=== PATIENT | female | born 1930 | race Caucasian/White ===

== ENCOUNTER 2016-08-03 15:57 | Inpatient (IN) | payer MEDICARE, OTHER ==
--- NOTE | 2016-08-03 16:03 | ED.PDOC ---
History of Present Illness - General Chief Complaint: Respiratory Problem Stated Complaint: cough Time Seen by Provider: 08/03/16 16:00 Source: patient, RN notes reviewed, Vital Signs reviewed, family Exam Limitations: no limitations Additional Information: Pt brought in to ER by daughter who is visiting from out of town. Pt with cough for the past 3 to 4 days. Pt is seen by Home Health 3 times a week and has a healing left lower leg skin ulcer that she is getting wound care for. Pt appears debilitated, weak, and in some discomfort. She was found to have a low grade temperature and some mild hypoxia along with mild tachycardia. Daughter is aware that patient is frail and will likely need to be admitted in order to improve her overall condition and she will likely benefit from rehab/ [facility] placement sooner rather than later. Pt has an advanced directive stating DNR/DNI. - History of Present Illness Timing/Duration: other - 3 to 4 days Severity: moderate Improving Factors: nothing Worsening Factors: movement Associated Symptoms: cough, fever/chills Allergies/Adverse Reactions: Allergies Codeine Allergy (Verified 11/24/15 10:01) Tylenol with codeine Home Medications: Ambulatory Orders Furosemide [Lasix] 20 mg PO .AM AND NOON 09/25/15 Potassium Chloride [Micro-K] 10 meq PO BID 08/03/16 Warfarin Sodium 3 mg PO BEDTIME 08/03/16 Review of Systems - Review of Systems Constitutional: States: see HPI, weakness EENTM: States: no symptoms reported Respiratory: States: cough Cardiology: States: no symptoms reported Gastrointestinal/Abdominal: States: no symptoms reported Genitourinary: States: no symptoms reported Musculoskeletal: States: back pain - chronic Skin: States: see HPI - - chronic left lower leg ulcer, obtaining wound care from home health nurse. Neurological: States: weakness Endocrine: States: no symptoms reported Hematologic/Lymphatic: States: no symptoms reported Past Medical History (General) - Patient Medical History Hx Seizures: No Hx Stroke: No Hx Dementia: No Hx Asthma: No Hx of COPD: No Hx Cardiac Disorders: No Hx Congestive Heart Failure: No Hx Pacemaker: No Hx Hypertension: No Hx Thyroid Disease: No Hx Diabetes: No Hx Gastroesophageal Reflux: No Hx Renal Disease: No Hx Cancer: No Hx of HIV: No Hx Hepatitis C: No Hx MRSA: No Hx Other PMH: Yes - history of DVT and PE in the past. MRSA Source:: Wound - Vaccination History Hx Tetanus, Diphtheria Vaccination: Yes Hx Influenza Vaccination: Yes Hx Pneumococcal Vaccination: Yes - Social History Hx Tobacco Use: No Hx Chewing Tobacco Use: No Hx Alcohol Use: No Hx Substance Use: No Hx Substance Use Treatment: No Hx Depression: No Hx Physical Abuse: No Hx Emotional Abuse: No Hx Suspected Abuse: No - Female History Patient : No Family Medical History - Family History Mother Family History: No Known Living Status: Hx Family Cancer: Yes - Breast and then brain Physical Exam - Physical Exam General Appearance: Ill Appearing, Unkempt Eye Exam: bilateral normal Ears, Nose, Throat: other - dry mucus membranes Neck: non-tender, full range of motion, supple Respiratory: respiratory distress - mild, rhonchi - diffuse with associated cough, wheezing - mild, diffuse Cardiovascular/Chest: tachycardia - mild Extremity: swelling - 1+ Neurologic: senior sql database developer II-XII nml as tested, no motor/sensory deficits, abnormal gait Skin Exam: other - Left lower extremity with bandage in place - clean/dry/intact Progress - Progress Progress: 08/03/16 19:03 Pt ill-appearing. Breath sounds are coarse and mildly hypoxic suggestive of pneumonia given low grade temp. Will perform a work-up with CBC, CMP, U/A, BNP, Blood Culture, CXR, and EKG. Will treat empirically for pneumonia with Rocephin and Zithromax and treat with nebulizer therapy as well. 08/03/16 19:08 Pt reports unchanged condition despite breathing treatment, IV antibiotics. Her oxygenation improved but her lung sounds were unchanged. Pt will likely benefit from admission. She is unsafe to go home given her debilitated state. She has findings suggestive of a UTI and a possible Pneumonia. Hospitalist called at [phone] - Caren (Nurse Practitioner) - who agreed to admission. - Results/Orders Results/Orders: 08/03/16 16:24 URINE CULTURE W/COLONY COUNT Stat 08/03/16 16:30 cefTRIAXone SODIUM [Rocephin] 1 gm Sodium Chl 0.9% 50Ml Min-Bag+ [NS 50ml MINI -BAG+] 50 ml IVPB Q24H EKG STAT 08/03/16 16:45 Sodium Chloride 0.9% 500Ml [NS 500ml] 500 ml IVS .QD 08/03/16 16:58 BLOOD CULTURE Stat 08/03/16 18:12 ED Intent to Admit Routine Laboratory Results - last 24 hr 08/03/16 08/03/16 08/03/16 16:15 16:16 16:24 WBC 9.1 RBC 4.77 Hgb 14.0 Hct 42.8 MCV 89.6 MCH 29.4 MCHC 32.8 L RDW 13.8 Plt Count 189 MPV 8.4 Absolute Neuts (auto) 5.90 Absolute Lymphs (auto) 2.20 Absolute Monos (auto) 0.90 H Absolute Eos (auto) 0.00 Absolute Basos (auto) 0.10 Neutrophils % 65.1 Lymphocytes % 24.1 Monocytes % 9.4 H Eosinophils % 0.4 L Basophils % 1.0 PT 15.9 H INR 1.410 Sodium 142 Potassium 3.6 Chloride 106 Carbon Dioxide 28 Anion Gap 11.6 L BUN 26 H Creatinine 0.88 BUN/Creatinine Ratio 29.5 H Random Glucose 109 H Serum Osmolality 288.5 Calcium 8.8 Total Bilirubin 0.4 AST 40 ALT 32 Alkaline Phosphatase 55 B-Natriuretic Peptide 132.0 H Serum Total Protein 7.1 Albumin 3.4 Globulin 3.7 H Albumin/Globulin Ratio 0.9 L Urine Color Yellow Urine Appearance Cloudy Urine pH 6.0 Ur Specific Ruth 1.020 Urine Protein Negative Urine Glucose (UA) Negative Urine Ketones Negative Urine Blood Large H Urine Nitrite Positive H Urine Bilirubin Negative Urine Urobilinogen 0.2 Ur Leukocyte Esterase Small H Urine RBC 5-10 H Urine WBC 10-20 H Ur Epithelial Cells 3-5 Urine Bacteria 3+ H - EKG/XRAY/CT EKG: Sinus, Tachy, no ST T wave changes XRAY: chest - single view - no obvious acute findings Departure - Departure Clinical Impression: Pneumonia, Urinary tract infection, Debilitated Disposition: Admit Patient Condition: Poor Referrals: Larry Bravo MD [Primary Care Provider] - 1-2 Weeks Home Medications: Ambulatory Orders Furosemide [Lasix] 20 mg PO .AM AND NOON 09/25/15 Potassium Chloride [Micro-K] 10 meq PO BID 08/03/16 Warfarin Sodium 3 mg PO BEDTIME 08/03/16 Decision To Admit - Decistion To Admit Decision to Admit Reason: Medical Nature - Pneumonia, UTI, Weakness Decision to Admit Date: 08/03/16 Decision to Admit Time: 18:12
[2016-08-03] MEDS ORDERED: AZITHROMYCIN IV 500 MG in SODIUM CHLORIDE 0.9% 250ML 250 ML IVPB ONE (16:14)
[2016-08-03] MEDS ORDERED: ALBUTEROL SULFATE 2.5 MG/3 ML VIAL NEB ONE (16:19)
[2016-08-03] MEDS ORDERED: cefTRIAXone SODIUM 1 GM in SODIUM CHL 0.9% 50ML MIN-BAG+ 50 ML IVPB SCH (16:30)
[2016-08-03] MEDS ORDERED: SODIUM CHLORIDE 0.9% 500ML 500 ML IVS PRN (16:45)
[2016-08-03] MEDS ORDERED: cefTRIAXone SODIUM 1 GM VIAL ONE (16:48)
[2016-08-03] MEDS ORDERED: SODIUM CHL 0.9% 50ML MIN-BAG+ 50 ML IVPB ONE (16:48)
--- NOTE | 2016-08-03 16:54 | RAD ---
PROCEDURE: XR CHEST 1 VIEW HISTORY: cough for 3 days elevated temp COMPARISON: 10/02/2015 TECHNIQUE: Single projection of the chest was done. FINDINGS: Chronic prominence of the interstitium is seen in the bilateral lung lauren . There are no discrete airspace infiltrates, pneumothoraces or pleural effusions. The pulmonary vascularity is normal. The cardiomediastinal contour is stable . IMPRESSION: There is no acute pleural-parenchymal process seen in the imaged lung lauren. Location of Interpretation: [facility] Electronically signed by: Bandar Hays MD 08/03/2016 4:53 PM NIGHT SHIFT MANAGER
[2016-08-03] MEDS ORDERED: AZITHROMYCIN IV 500 MG VIAL IVPB ONE (17:34)
[2016-08-03] MEDS ORDERED: SODIUM CHLORIDE 0.9% 250ML 250 ML ONE (17:35)
[2016-08-03] MEDS ORDERED: WATER FOR INJ 10 ML VIAL INJ ONE (18:02)
--- NOTE | 2016-08-03 19:30 | HP ---
SUPERVISING PHYSICIAN: Saeid Zaragoza M.D. CHIEF COMPLAINT: Coughing and upper respiratory symptoms times 1 week. HISTORY OF PRESENT ILLNESS: This is an 86 year-old female patient who was brought to the Emergency Room by her daughter who is visiting her from out of town. The patient has had a cough for over a week but has progressively worsened over the last 3 or 4 days to the point where she had become short of breath and had some wheezing. She denied having any fever but she had not taken it. She also has some bilateral lower leg wounds that have been treated by her Home Health. In the Emergency Room, she had some mild hypoxia with some tachycardia as well as tachypnea. In the Emergency Room, her O2 sat was 91 but her respiratory rate was as high as 24. Heart rate was up to 111. She was visibly short of breath. She was given Rocephin as well as Azithromycin. She was also found to have a urinary tract infection. Her BNP was slightly elevated at 132 but she does not have a history of any congestive heart failure. I was called for hospital admission. PAST MEDICAL HISTORY: 1. Seasonal allergies. 2. DVT of the right leg in 2015 as well as 2016. 3. Pulmonary embolism in 2014. 4. 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 5. Chronic obstructive pulmonary disease. 6. Chronic lower extremity edema. 7. History of decubitus ulcers and wounds with poor healing. PAST SURGICAL HISTORY: 1. Cholecystectomy. 2. Hemorrhoidectomy. 3. Hysterectomy. 4. Sinus surgery with sinus and pallet surgery. CURRENT MEDICATIONS: Per the EMR and awaiting verification. ALLERGIES: ASPIRIN AND CODEINE. FAMILY HISTORY: CEA and breast cancer. SOCIAL HISTORY: She lives alone at [facility]. She denies any tobacco , ETOH or illicit drug use. REVIEW OF SYSTEMS: Complains of fatigue and chills, but she is not aware of any fever. HEENT: Complains of sinus symptoms, allergy-type symptoms, but denies sore throat or vision changes. RESPIRATORY: As per the history of present illness. CARDIAC: Denies chest pain or palpitations. ABDOMEN: Denies abdominal pain, nausea or vomiting, constipation or diarrhea. GENITOURINARY: Denies hematuria, dysuria or polyuria. NEUROLOGIC: Denies headache, dizziness or seizures. EXTREMITIES: Complains of chronic lower leg swelling. SKIN: Complains of a rash under her breasts as well as redness in the vaginal area as well as some wounds on her lower legs. PHYSICAL EXAMINATION: VITAL SIGNS: Temperature 100, pulse is as high as 111 but is now 92, blood pressure 152/85, respiratory rate 24, O2 sat was initially 91% and it is now 96 % on 2 liters nasal cannula. GENERAL: This is an 86 year-old female who is slightly disheveled lying in her hospital bed. HEENT: Normocephalic and atraumatic. Oropharynx is clear. Oral mucous membranes are moist. NECK: Supple without mass. There is no jugular venous distention. CHEST: Bilateral expiratory wheezing noted throughout with some coarse rhonchi , especially noticeable in the apices. CARDIOVASCULAR: Regular rate and rhythm. ABDOMEN: Soft, nondistended, non-tender. Bowel sounds are positive. EXTREMITIES: No cyanosis or clubbing, but there is +2 edema to her lower extremities. NEUROLOGIC: She is awake, alert and oriented, but she is [id number]. SKIN: She has a yeast-like rash under both breasts, axilla and inguinal area. Under her right breast she has some greenish type drainage from a wound in the crease under that breast. She also has some yeasty areas to the folds in the abdomen. She also has a stage II decubitus on her left buttocks and a stage I area on her left buttocks. She also has wounds to bilateral lower legs on the lateral aspect of those legs. LABORATORY: Sodium 142, potassium 3.6, chloride 106, carbon dioxide 28, anion gap 11.6, BUN 26, creatinine 0.88, glucose 109. BNP 132, globulin 3.7. Urine has a large amount of urine blood, positive for urine nitrites, small amount of leukocyte esterase, 5 to 10 urine RBCs, 10 to 20 urine WBCs and 3+ urine bacteria. PT 15.9, INR 1.4. She supposedly takes Coumadin and she states she did have her dose today. Chest x-ray shows no acute pleural parenchymal processes seen in the imaged lung lauren. All other labs and films have been reviewed via the EMR. ASSESSMENT: 1. Urinary tract infection with a history of chronic urinary tract infections. 2. Exacerbation of chronic obstructive pulmonary disease with a history of tuberculosis in 1954 with noted tachypnea and tachycardia as well as dyspnea in the Emergency Room. 3. Candidiasis of the inguinal area under her breasts, the axilla and skin folds. 4. Wound under her left breast with wounds to the lateral aspect of her bilateral lower legs. 5. Decubitus ulcers on the buttocks stage II on the left and stage 1 on the right. 6. History of deep venous thromboses and pulmonary embolus on Coumadin therapy at this time with a subtherapeutic INR. 7. Self care deficit. PLAN: We will admit the patient to the hospital. She has received Azithromycin and Rocephin in the Emergency Room and I will continue both of those. She has had blood cultures done as well as urine cultures and those are pending. I have ordered a sputum culture. She will have breathing treatments both scheduled and as needed. I have given her 1 dose of Solu-Medrol and I have not continued steroid therapy and that may need to be continued in the morning. I have also added Mucinex as well as Tessalon Perles. Wound care to her buttocks and her lower legs. I have cultured her wound under her breast. I have also ordered some Nystatin powder for the yeast. May need to add some Diflucan tomorrow. I have added a Machine Programmer consultation for discharge planning. I will also order physical therapy. I have added Protonix for ulcer prophylaxis. Her INR is subtherapeutic and she has had a history of DVTs. I do not see any indication for any coagulopathies at this time, but I am going to hold her Coumadin and put her on DVT prophylaxis at least tonight. She may need to be put on the higher dose of Lovenox tomorrow. I have ordered pulmonary hygiene as well as incentive spirometry. We will continue to monitor the patient closely and follow as needed. Dr. Zaragoza is the collaborating physician available for consultation. #[id number] [facility]
[2016-08-03] MEDS ORDERED: LEVALBUTEROL NEBS 1.25 MG/3 ML VIAL INH PRN (21:27)
[2016-08-03] MEDS ORDERED: IV SET AND CAP CHANGE INJ INJ SCH (21:30)
[2016-08-03] MEDS ORDERED: WARFARIN SODIUM 2 MG TAB PO ONE (21:47)
[2016-08-03] MEDS ORDERED: GLUCAGON INJ 1 MG VIAL SUBCU PRN (21:48)
[2016-08-03] MEDS ORDERED: DEXTROSE 50% 25 GM/50 ML SYG IV PRN (21:48)
[2016-08-03] MEDS ORDERED: methylPREDNISolone SODIUM SUC 125 MG/2 ML VIAL IV ONE (21:48)
[2016-08-03] MEDS ORDERED: SODIUM CHLORIDE 0.9% 10 ML VIAL ONE (21:53)
[2016-08-03] MEDS ORDERED: WARFARIN SODIUM 2 MG TAB ONE (21:53)
[2016-08-03] MEDS: IPRATROPIUM/ALBUTEROL 3 ML VIAL INH SCH (21:57)
[2016-08-03] MEDS ORDERED: PANTOPRAZOLE SODIUM IV 40 MG VIAL IV SCH (22:00)
[2016-08-03] MEDS ORDERED: ENOXAPARIN SODIUM 40 MG/0.4 ML SYG SUBCU SCH (22:00)
[2016-08-03] MEDS: BENZONATATE PERLES 100 MG CAP PO PRN (22:02)
[2016-08-03] MEDS: guaiFENesin ER TAB 600 MG TAB PO SCH (22:04)
[2016-08-03] MEDS: NYSTATIN POWDER 15GM BTTL TOP SCH (22:05)
[2016-08-03] MEDS: HYDROcodone 5MG/APAP 325MG 1 EA TAB PO PRN (22:05)
[2016-08-04] MEDS ORDERED: SODIUM CHL 0.9% 50ML MIN-BAG+ 50 ML IVPB ONE ×2 (03:25→15:59)
[2016-08-04] MEDS ORDERED: cefTRIAXone SODIUM 1 GM VIAL ONE ×2 (03:25→15:59)
[2016-08-04] MEDS: cefTRIAXone SODIUM 1 GM in SODIUM CHL 0.9% 50ML MIN-BAG+ 50 ML IVPB SCH ×2 (06:23→18:16)
--- NOTE | 2016-08-04 07:24 | RAD ---
EXAM: Single view chest. INDICATION: Chest pain. COMPARISON: Chest x-ray: 08/03/2016. FINDINGS: There are bibasilar interstitial opacities. Small pleural effusions may be present. The heart size is stable. There is is no pneumothorax. The bones are demineralized. IMPRESSION: Bibasilar interstitial opacities Electronically signed by: Last Jaramillo MD 08/04/2016 7:23 AM CDT
[2016-08-04] MEDS: INSULIN LISPRO 100 UNITS/ML PEN SUBCU SCH ×4 (08:02→21:18)
[2016-08-04] MEDS: guaiFENesin ER TAB 600 MG TAB PO SCH ×2 (08:31→21:18)
[2016-08-04] MEDS: NYSTATIN POWDER 15GM BTTL TOP SCH ×3 (08:32→21:18)
[2016-08-04] MEDS: IPRATROPIUM/ALBUTEROL 3 ML VIAL INH SCH (08:39)
[2016-08-04] MEDS ORDERED: LEVALBUTEROL NEBS 1.25 MG/3 ML VIAL NEB PRN (08:47)
[2016-08-04] MEDS ORDERED: SODIUM CHLORIDE 0.9% 10 ML VIAL IV PRN (08:50)
[2016-08-04] MEDS: WARFARIN SODIUM 5 MG TAB PO SCH (12:14)
[2016-08-04] MEDS ORDERED: FLUCONAZOLE 150 MG TAB PO ONE (12:20)
--- NOTE | 2016-08-04 12:23 | PCM.CORE ---
Physician DVT/VTE - Prophylaxis Currently: Patient already on anticoagulation therapy - Warfarin - Nurse DVT Assessment & Total Each Risk Factor Represents 3 Points: Age over 75 years, Hx of DVT/PE, Family Hx thrombosis Each Risk Factor is 1 Point: Serious Lung disease (pnemonia <1month, COPD, emphysema,etc) DVT Assessment Score: 10 - 5 or more Very High Risk Treatments: Early Ambulation *, Sequential Compression Device Pharmacological: Warfarin daily
[2016-08-04] MEDS: IPRATROPIUM/ALBUTEROL 3 ML VIAL NEB SCH ×3 (12:57→19:24)
[2016-08-04] MEDS ORDERED: FLUCONAZOLE 150 MG TAB ONE (13:27)
[2016-08-04] MEDS: HYDROcodone 5MG/APAP 325MG 1 EA TAB PO PRN ×2 (13:32→21:18)
--- NOTE | 2016-08-04 13:34 | PN ---
DATE: 08/04/16 SUPERVISING PHYSICIAN: Saeid Zaragoza M.D. SUBJECTIVE: The patient is resting in bed visiting with her daughter. She appears to be in no acute distress. She continues to have a nonproductive cough. She denies any chest pains, nausea or vomiting or diarrhea. OBJECTIVE: VITAL SIGNS: T max 100.0, pulse 89, blood pressure 99/66, respirations 20, O2 sat showing 96% on nasal cannula at rest. I's and O's show a positive balance of 180 with 380 in, 200 out. Weight 68.0 kg. GENERAL: The patient appears to be in no acute distress. She is able to converse without any difficulty. CHEST: Notable for continued coarse rhonchi more prominent in the posterior bases bilaterally. No wheezing is appreciated. HEART: Regular rate and rhythm. ABDOMEN: Soft, non-tender. Positive bowel sounds. EXTREMITIES: bilateral lower extremities are covered with Giuseppe bandages. Pulses distally are 1+ bilaterally. Difficult to assess degree of edema secondary to compression wrapping. NEUROLOGIC: She is alert and oriented times three. INTEGUMENT: There is a yeast-appearing rash underneath the breasts bilaterally as well as inguinal area and underneath the abdominal folds. LABORATORY: White count 6.0, hemoglobin 12.5, hematocrit 38.8, platelet count 169,000. Differential does show a left shift today. INR is still low at 1.62 with PT of 18.2. Chemistries show normal electrolytes with potassium 3.6, BUN 26, creatinine 1.04, glucose 213, calcium 8.1. Liver functions show to be within normal limits. MICROBIOLOGY: Urine culture preliminary shows gram-negative rods. Blood cultures remain negative. Wound culture from the breast area remains with no growth at 24 hours. Sputum culture preliminary shows normal onofre at 24 hours and MRSA surveillance culture is pending. RADIOLOGY: Per radiology interpretation shows bibasilar interstitial opacities. ASSESSMENT: 1. Urinary tract infection with a significant history for chronic urinary tract infections with preliminary culture showing gram-negative rods. 2. Acute exacerbation of chronic obstructive pulmonary disease with history of tuberculosis in 1954 noted to be significant with tachycardia on admission with some notable dyspnea with radiographic studies indicating possible bibasilar pneumonia with the patient also being afebrile. 3. Intertrigo to multiple areas including breast, axilla and abdominal folds. 4. Wound to the left breast as well as lateral aspect of bilateral lower legs with preliminary cultures pending. 5. Multiple decubitus ulcers, one stage II on the left and a stage I on the right. 6. History of deep venous thrombosis and pulmonary embolus on Coumadin therapy with a subtherapeutic INR on admission. 7. Significant self care deficit. PLAN: Will continue with current plan of care and await final culture results. She does remain on antibiotics parenterally that include Azithromycin and Rocephin. She has also been started on Mucinex with sputum culture preliminary showing normal onofre. Will continue with aggressive pulmonary hygiene including Xopenex treatments. In regards to the intertrigo treatment, will continue with Nystatin 3 times a day and given 1 dose of Diflucan 150 mg today. I will increase her Coumadin today to 5 mg and recheck in the morning. She will continue on Coumadin with no additional Lovenox. Plan to do DVT studies to the lower extremities given the patient's history and subtherapeutic INR on admission. Epic Radiant Analyst consultation will be initiated to help with discharge planning. After talking with the family, the patient's daughter, have voiced they will move the patient to [place], [place] in September when they are able to make arrangements, but until that point they would request that we help with assisting placing the patient into a care facility given the patient' s significant self care deficit. Anticipate discharge in 2 to 3 days and until then will continue to monitor the patient closely and treat appropriately. Dr. Zaragoza is the collaborating physician and available for consultation. #[id number] [facility]
[2016-08-04] MEDS ORDERED: SODIUM CHLORIDE 0.9% 250ML 250 ML ONE (15:59)
[2016-08-04] MEDS ORDERED: AZITHROMYCIN IV 500 MG VIAL IVPB ONE (16:00)
[2016-08-04] MEDS: AZITHROMYCIN IV 500 MG in SODIUM CHLORIDE 0.9% 250ML 250 ML IVPB SCH (16:06)
[2016-08-04] MEDS: SODIUM CHLORIDE 0.9% (FLUSH) 10 ML SYG IV PRN ×2 (18:17→21:18)
[2016-08-04] MEDS ORDERED: PANTOPRAZOLE SODIUM IV 40 MG VIAL IV SCH (21:00)
[2016-08-04] MEDS ORDERED: ENOXAPARIN SODIUM 40 MG/0.4 ML SYG SUBCU SCH (21:00)
[2016-08-04] MEDS: BENZONATATE PERLES 100 MG CAP PO PRN (21:18)
[2016-08-05] MEDS ORDERED: SODIUM CHL 0.9% 50ML MIN-BAG+ 50 ML IVPB ONE ×2 (05:35→18:46)
[2016-08-05] MEDS ORDERED: cefTRIAXone SODIUM 1 GM VIAL ONE ×2 (05:36→18:46)
[2016-08-05] MEDS: SODIUM CHLORIDE 0.9% (FLUSH) 10 ML SYG IV PRN ×2 (05:45→20:56)
[2016-08-05] MEDS: cefTRIAXone SODIUM 1 GM in SODIUM CHL 0.9% 50ML MIN-BAG+ 50 ML IVPB SCH ×2 (05:46→18:48)
[2016-08-05] MEDS: INSULIN LISPRO 100 UNITS/ML PEN SUBCU SCH ×4 (07:26→21:30)
[2016-08-05] MEDS: guaiFENesin ER TAB 600 MG TAB PO SCH ×2 (08:36→20:56)
[2016-08-05] MEDS: NYSTATIN POWDER 15GM BTTL TOP SCH ×3 (08:36→21:30)
[2016-08-05] MEDS: IPRATROPIUM/ALBUTEROL 3 ML VIAL NEB SCH ×4 (09:10→21:11)
--- NOTE | 2016-08-05 11:49 | US ---
Procedure: US LOWER EXTREMITY VEINS LIMITED/UNILATERAL/FOLLOW UP, US LOWER EXTREMITY VEINS LIMITED/UNILATERAL/FOLLOW UP Exam Date: 08/05/2016 10:15 AM CDT Ordering Provider: Bennett Osorio NP Clinical Indication: Bilateral lower extremity swelling and pain Comparison: None Technique: Multiple real-time grayscale sonographic images of the bilateral lower extremity veins were obtained with color flow Doppler. Findings: Nonocclusive thrombus seen within the bilateral popliteal veins as there is no compressibility and echogenic thrombus is seen within the lumen. Otherwise, normal compressibility and augmentation of flow is seen within the common femoral, saphenous, and femoral veins. No other evidence of echogenic thrombus. No soft tissue abnormality identified. Impression: 1. Nonocclusive thrombus seen within the bilateral popliteal veins. Electronically signed by: Juan Carlos Mauricio MD 08/05/2016 11:48 AM CDT
[2016-08-05] MEDS: PANTOPRAZOLE SODIUM TAB 40 MG PO SCH (11:52)
[2016-08-05] MEDS: WARFARIN SODIUM 5 MG TAB PO SCH (11:52)
[2016-08-05] MEDS ORDERED: SODIUM CHLORIDE 0.9% 250ML 250 ML ONE (12:53)
[2016-08-05] MEDS ORDERED: AZITHROMYCIN IV 500 MG VIAL IVPB ONE (12:53)
--- NOTE | 2016-08-05 14:28 | PN ---
SUPERVISING PHYSICIAN: Saeid Zaragoza MD DATE: 08/05/16 SUBJECTIVE: The patient is sitting up in bed eating breakfast. She notes she still has a cough. She feels like she is somewhat better today, but continues to have shortness of breath. She denies any chest pain. She does remain afebrile. OBJECTIVE: VITAL SIGNS: T-max 98.4. Pulse 65. Blood pressure 141/73. Respirations 18. O2 saturation 96% on room air. I&Os show positive balance of 970 with 1570 in and 600 out. Weight 68.0 kg. GENERAL: The patient is in good spirits, appears to be in no distress. CHEST: Breath sounds continue to be coarse with some rhonchi towards the bases bilaterally. There is no notable wheezing. HEART: Regular rate and rhythm. ABDOMEN: Soft, nontender. Positive bowel sounds. EXTREMITIES: No cyanosis, clubbing or edema. NEUROLOGIC: Alert and oriented times three. LABORATORY: White count elevated at 18.1, hemoglobin 12.7, hematocrit 40.2, platelet count 161,000. Differential does show a left shift. INR today is therapeutic at 2.45 with PT-T 27.4. Chemistries show normal electrolytes with potassium 3.6, BUN 23, creatinine 0.82, glucose 92 to 241, calcium 8.5. MICROBIOLOGY: Blood cultures remain negative at 24 hours. Urine culture final results show Escherichia coli that is burciaga sensitive. Wound culture final results show heavy growth of skin onofre, but no pathogens isolated. Sputum culture final shows normal onofre at 48 hours. MRSA surveillance culture preliminary shows a gram positive cocci. RADIOLOGY: Lower extremity ultrasounds are pending. ASSESSMENT: 1. Urinary tract infection with a significant history for chronic urinary tract infections in the past with final culture results showing Escherichia coli that was pansensitive with the patient being on parenteral antibiotic including Rocephin. 2. Acute exacerbation of chronic obstructive pulmonary disease with history of tuberculosis in 1954 and noted to be significantly tachycardia on admission with dyspnea and radiographic studies indicating possible bibasilar pneumonia with the patient now showing a leukocytosis with a left shift. 3. Intertrigo to multiple areas including breast, axilla and abdominal folds. 4. Wound to the left breast as well as lateral aspect of bilateral lower legs with cultures showing normal onofre. No pathogens isolated. 5. Multiple decubitus ulcers to the coccyx, stage II on the left and stage I on the right. 6. History of deep venous thrombosis and pulmonary embolus on Coumadin therapy with now therapeutic INR with lower extremity Doppler studies pending. 7. Significant self-care deficit, requiring placement in a long-term care facility. PLAN: We will continue to provide parenteral antibiotic coverage with azithromycin and Rocephin as the patient clinically shows some improvement although she does continue to show leukocytosis. We will continue with aggressive pulmonary hygiene. We will await final readings of the lower extremity Doppler studies for further evaluation of possible DVT. The patient remains on Coumadin and is now therapeutic. We will plan to monitor this daily and start her back on her home medication dose at 3 mg at bedtime. Discussions have been initiated between social media content specialist, Falguni, and family in regards to placement of the patient in a care facility on a temporary basis awaiting the patient's ultimate transfer to living with her family in [place], [place]. Until discharge, we will continue to monitor the patient closely and treat appropriately. Dr. Zaragoza is the collaborating physician and available for consultation. #[id number] [facility]
[2016-08-05] MEDS: AZITHROMYCIN IV 500 MG in SODIUM CHLORIDE 0.9% 250ML 250 ML IVPB SCH (15:29)
[2016-08-05] MEDS ORDERED: WARFARIN SODIUM 3 MG TAB ONE (19:58)
[2016-08-05] MEDS ORDERED: WARFARIN SODIUM 3 MG TAB PO SCH (21:00)
[2016-08-05] MEDS: HYDROcodone 5MG/APAP 325MG 1 EA TAB PO PRN (22:11)
[2016-08-05] MEDS: BENZONATATE PERLES 100 MG CAP PO PRN (23:52)
[2016-08-06] MEDS ORDERED: SODIUM CHL 0.9% 50ML MIN-BAG+ 50 ML IVPB ONE (05:28)
[2016-08-06] MEDS ORDERED: cefTRIAXone SODIUM 1 GM VIAL ONE (05:29)
[2016-08-06] MEDS: cefTRIAXone SODIUM 1 GM in SODIUM CHL 0.9% 50ML MIN-BAG+ 50 ML IVPB SCH (05:41)
[2016-08-06] MEDS: SODIUM CHLORIDE 0.9% (FLUSH) 10 ML SYG IV PRN (05:41)
[2016-08-06] MEDS: PANTOPRAZOLE SODIUM TAB 40 MG PO SCH (06:03)
--- NOTE | 2016-08-06 07:03 | RAD ---
Clinical History : pneumonia , MAIN Exam : PA and lateral views of the chest 08/06/2016 7:00 AM CDT Comparisons : CT pulmonary angiogram February 09, 2015 Portable AP view of the chest August 04, 2016 Findings : There is a stable incidental accessory azygos fissure. Mild emphysematous changes are noted throughout the lungs bilaterally. There is flattening of the diaphragms . The lungs are otherwise clear without focal consolidation or pleural effusion. The heart is normal in size. The mediastinal contours are normal in appearance. The patient is osteopenic which limits evaluation of the thoracic spine. The ribs and shoulders are grossly normal. Limited evaluation of the upper abdomen demonstrates no gross abnormalities. Impression: 1. No acute cardiopulmonary disease. 2. Stable emphysema. Electronically signed by: Maicol John MD 08/06/2016 7:02 AM CDT
[2016-08-06] MEDS: INSULIN LISPRO 100 UNITS/ML PEN SUBCU SCH ×2 (07:19→11:22)
[2016-08-06] MEDS: guaiFENesin ER TAB 600 MG TAB PO SCH (08:38)
[2016-08-06] MEDS: NYSTATIN POWDER 15GM BTTL TOP SCH (08:40)
[2016-08-06] MEDS: IPRATROPIUM/ALBUTEROL 3 ML VIAL NEB SCH (08:47)
[2016-08-06] MEDS ORDERED: LISINOPRIL 10 MG TAB PO SCH (09:00)
[2016-08-06] MEDS ORDERED: BIFIDOBACTERIUM INFANTIS 4 MG CAP PO SCH (11:00)
[2016-08-06] MEDS: HYDROcodone 5MG/APAP 325MG 1 EA TAB PO PRN (12:25)
[2016-08-06 14:21] VITALS: BP 125/77; TEMP 97.5; O2SAT 94
--- NOTE | 2016-08-07 10:26 | DS ---
SUPERVISING PHYSICIAN: Saeid Zaragoza MD DISCHARGE DIAGNOSIS: 1. Urinary tract infection with a significant history of chronic urinary tract infections in the past with final culture results showing Escherichia coli that was burciaga sensitive with the patient being on parenteral antibiotic to include Rocephin through admission. 2. Acute exacerbation of chronic obstructive pulmonary disease with a history of tuberculosis in 1954 and noted to be significantly tachycardic on admission with dyspnea as well as radiographic studies indicating possible bibasilar pneumonia with the patient showing leukocytosis as well as left shift, having been started on Rocephin and azithromycin, showing improvement prior to discharge with sputum culture showing normal onofre at 48 hours with blood cultures remaining negative at three days. 3. Intertrigo to multiple areas including breasts, axilla and abdominal folds , showing improvement after starting on Nystatin powder and initiation of Diflucan x1. 4. Superficial wound to the left breast as well as lateral aspects of bilateral lower legs with culture results showing normal onofre as well as MRSA cultures being negative and no pathogens isolated. 5. Multiple decubitus ulcers to the coccyx, stage 2 on the left and stage 1 on the right. 6. 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 7. Significant self-care deficit requiring placement in long-term care facility as demonstrated by the patient's poor nutritional status on admission and multiple decubitus ulcers to the coccyx as well as intertrigo to skin folds from poor care. HISTORY OF PRESENT ILLNESS: Ms. Segura is an 86-year-old, female patient who lives alone and was brought to the Emergency Room by her daughter who is visiting her from out of town. The patient reported having a cough for over a week and had progressively worsened over the last 3 or 4 days prior to admission to the point where she had become short of breath and had some wheezing. She denied having any fever, but she had not taken it. She also has some bilateral lower leg wounds that have been treated by her Home Health. In the Emergency Room, she had some mild hypoxia with some tachycardia as well as tachypnea. In the Emergency Room, her O2 sat was 91%, but her respiratory rate was as high as 24. Heart rate was up to 111. She was visibly short of breath in the Emergency Department. She was given Rocephin as well as azithromycin initially after blood cultures were completed. She was also found to have a significant urinary tract infection. Her BNP was slightly elevated, but she does not have a history of any congestive heart failure. Given the findings on clinical exam and the patient's advanced age and concerns for severe exacerbation of her chronic obstructive pulmonary disease and self-care deficit noted as she does live alone and only has home health, the patient was admitted to the hospital for further treatment and evaluation. LABORATORY: White count initially on admission was 9.1. It did go up to a maximum of 18.1 on 08/05/16, but after continuation of treatment and at time of discharge, it normalized to 9.7. Hemoglobin and hematocrit were stable and at discharge were 13.5 and hematocrit 41.1. Platelet count 171,000. Initially, there was no left shift on admission, but shortly after admission on 08/04/16, she did show a left shift. This resolved by discharge after initiation of antibiotic therapy. PT-T initially on admission showed to be nontherapeutic with an INR of 1.41 and slowly showed improvement after continuation of Coumadin and at time of discharge was 3.76. Chemistries on admission showed normal electrolytes with potassium 3.6. They remained within normal limits except for slight decrease in potassium and at time of discharge was 3.5. Discharge BUN was 19, creatinine 0.83. Glucose initially was elevated through admission and after initiation of treatment was better controlled and ranged from 80 to 100. Liver functions on admission were within normal limits. She had a slightly elevated BNP of 132. Serum total protein was low as well as albumin at 2.8. Urinalysis on admission dipstick showed a large amount of blood , positive nitrites with small amount of leukocyte esterase. Microscopic exam revealed 5 to 10 RBCs, 10 to 20 WBCs with 3 to 5 epithelials with 3+ bacteria. MICROBIOLOGY: Cultures submitted included urine culture that showed Escherichia coli that was burciaga sensitive. She had two sets of blood cultures that were negative after three days. She had a wound culture of the chest with final results showing heavy growth of skin onofre, no pathogens were isolated. Sputum culture was submitted and showed normal onofre at 48 hours. MRSA surveillance culture showed no growth at 72 hours. RADIOLOGY: Initial chest x-ray in the Emergency Department per radiology interpretation showed no acute pleural or parenchymal processes on a single view chest. This was followed up after admission with another single view chest that was noted by Radiology to have bibasilar interstitial opacities. She had bilateral lower extremity Doppler studies to assess for DVTs and per radiology interpretation indicated there was nonocclusive thrombus seen within the bilateral popliteal veins. Final two view chest x-ray on the date of discharge per radiology interpretation showed no acute cardiopulmonary processes. There were no consolidations or pleural effusions seen. Stable emphysema was noted. HOSPITAL COURSE: Ms. Segura was admitted as noted in the history of present illness for multiple reasons. She was started on antibiotics to include both treatment for urinary tract infection and bibasilar pneumonia which included Rocephin and azithromycin. The patient was given IV fluids for hydration therapy. She progressed well. She had good nutritional input as well as oral intake and actually was able to participate with some physical therapy. It was noted that the patient demonstrated some significant safety concerns during gait , grasping objects to hold on and with a rolling walker as well as she demonstrated decreased strength and activity tolerance. Recommendations were that the patient have jail physical therapy services. The patient clinically improved in regards to her exacerbation of chronic obstructive pulmonary disease with IV antibiotics and radiographic images indicated improvement as well as the initial bibasilar pneumonia. It was felt the patient had done well clinically enough to be discharged to continue with her care in a long-term care facility until arrangements could be made for the patient to go home safely. Therefore, on date of discharge, 08/06/16, the patient was discharged to [facility] to continue with plan of care. PLAN: The patient was discharged on 08/06/16 to [facility] to have close clinical followup with her primary care provider, Dr. Bravo, in one to two weeks. She was to resume all her home medications as directed and start new prescriptions as indicated. Wound care was as per institutional protocols. She was to have physical therapy evaluation and treatment. She was to resume her usual diet and to increase her activity as tolerated and walk with a walker as per physical therapy. She was instructed to return to the hospital should she have worsening of her condition or failure to improve. At time of discharge , new prescriptions included: 1. Align 4 mg daily, #30. 2. Azithromycin to completion of therapy, 250 mg for 3 days. 3. Guaifenesin 600 mg tablets twice a day, #20. 4. Nystatin powder 15 grams topically 4 times a day to areas of rash under breasts, abdomen, and axilla. 5. Cefdinir 300 mg twice daily for 7 days. 6. Lisinopril 20 mg daily, #30. 7. Albuterol nebulizers 2.5 mg inhaled q.4h. as needed, #60. 8. Tessalon Perles 200 mg 3 times a day as needed, #14. The patient was discharged in stable condition by [facility] with ultimate plans to transition the patient to home which will be moving from [place] to her daughter's area of residence at [place], [place]. #[id number] [facility]
== END 2016-08-06 14:35 | DRG 190 ==
LOC: ER 15:57 → OBSVTOIN 19:29 → MS 19:29
PROVIDERS: ADMIT Nurse Practitioner Acute Care; ATTEND Nurse Practitioner Family
DX: J44.1 Chronic obstructive pulmonary disease with (acute) exacerbation (principal); J18.9 Pneumonia, unspecified organism; N39.0 Urinary tract infection, site not specified; R09.02 Hypoxemia; B96.20 Unspecified Escherichia coli [E. coli] as the cause of diseases classified elsewhere; B37.2 Candidiasis of skin and nail; L30.4 Erythema intertrigo; L89.322 Pressure ulcer of left buttock, stage 2; L89.311 Pressure ulcer of right buttock, stage 1; Z66 Do not resuscitate; Z86.711 Personal history of pulmonary embolism; Z86.11 Personal history of tuberculosis; Z86.718 Personal history of other venous thrombosis and embolism; Z79.01 Long term (current) use of anticoagulants; Z73.89 Other problems related to life management difficulty

== ENCOUNTER → 2016-08-14 | Outpatient (CLI) | payer MEDICARE, OTHER | END | disposition home or self-care (01) | LOC: GT 08:40 | PROVIDERS: ATTEND Family Medicine | DX: Z79.01 Long term (current) use of anticoagulants (principal) ==

== ENCOUNTER → 2016-08-19 | Outpatient (CLI) | payer MEDICARE, OTHER | END | disposition home or self-care (01) | LOC: GT 08:27 | PROVIDERS: ATTEND Family Medicine | DX: Z79.01 Long term (current) use of anticoagulants (principal); Z86.718 Personal history of other venous thrombosis and embolism ==

== ENCOUNTER → 2016-08-26 | Outpatient (CLI) | payer MEDICARE, OTHER | END | disposition home or self-care (01) | LOC: LAB.O 09:53 → GT 09:53 → EDSTATUS 10:12 | PROVIDERS: ATTEND Family Medicine | DX: Z86.718 Personal history of other venous thrombosis and embolism (principal) ==

== ENCOUNTER → 2016-08-28 | Outpatient (CLI) | payer MEDICARE, OTHER | END | disposition home or self-care (01) | LOC: LAB.O 08:09 → GT 08:09 → EDSTATUS 13:42 | PROVIDERS: ATTEND Family Medicine | DX: Z86.718 Personal history of other venous thrombosis and embolism (principal); I10 Essential (primary) hypertension ==

== ENCOUNTER → 2016-09-02 | Outpatient (CLI) | payer MEDICARE, OTHER | END | disposition home or self-care (01) | LOC: LAB.O 08:35 → GT 08:35 → EDSTATUS 12:44 | PROVIDERS: ATTEND Family Medicine | DX: I10 Essential (primary) hypertension (principal); Z86.718 Personal history of other venous thrombosis and embolism ==

== ENCOUNTER → 2016-09-23 | Outpatient (CLI) | payer MEDICARE | END | disposition home or self-care (01) | LOC: GT 07:27 | PROVIDERS: ATTEND Family Medicine | DX: Z86.718 Personal history of other venous thrombosis and embolism (principal) ==

== ENCOUNTER → 2016-09-25 | Outpatient (CLI) | payer MEDICARE | END | disposition home or self-care (01) | LOC: GMA 17:55 | PROVIDERS: ATTEND Nurse Practitioner Family | DX: R06.00 Dyspnea, unspecified (principal); R60.0 Localized edema ==

== ENCOUNTER → 2016-09-30 | Outpatient (CLI) | payer MEDICARE | END | disposition home or self-care (01) | LOC: GT 08:26 | PROVIDERS: ATTEND Family Medicine | DX: Z86.718 Personal history of other venous thrombosis and embolism (principal) ==

== ENCOUNTER → 2016-10-07 | Outpatient (CLI) | payer MEDICARE | END | disposition home or self-care (01) | LOC: GT 07:47 | PROVIDERS: ATTEND Family Medicine | DX: Z86.718 Personal history of other venous thrombosis and embolism (principal) ==

== ENCOUNTER → 2016-10-11 | Outpatient (CLI) | payer MEDICARE | END | disposition home or self-care (01) | LOC: GMAJ 08:18 | PROVIDERS: ATTEND Family Medicine | DX: Z86.718 Personal history of other venous thrombosis and embolism (principal) ==